=== PATIENT | male | born 1950 | race Hispanic/Latino ===

== ENCOUNTER 2019-06-23 09:17 | Observation (INO) | payer MEDICARE ==
[~2019-06-23] VITALS: Ht 167.6 cm; Wt 106.1 kg
[2019-06-23] MEDS ORDERED: ASPIRIN 81 MG CHEW TAB PO STA (09:35)
--- NOTE | 2019-06-23 10:09 | Diagnostic Imaging Report ---
EXAMINATION: CXR 2 VIEW - HOPD INDICATION: Chest pain COMPARISON: None FINDINGS: LINES/TUBES:None LUNGS:The lungs are well-inflated. No focal consolidation or pulmonary edema. PLEURA:No pleural effusion or pneumothorax. MEDIASTINUM:The cardiomediastinal silhouette appears normal in size and shape. BONES/SOFT TISSUES:No acute osseous injury. ABDOMEN:No free air under the diaphragm. IMPRESSION: No focal pneumonia or pulmonary edema. Signed by: Krista Ferrari MD on 06/23/2019 10:06 AM
[2019-06-23] MEDS ORDERED: ASPIRIN 81 MG CHEW TAB ONE (10:29)
[2019-06-23] MEDS ORDERED: MORPHINE SULFATE 2 MG/ML SYR 1ML IV PRN (10:45)
[2019-06-23] MEDS ORDERED: ASPIRIN 81 MG CHEW TAB PO ONE (10:45)
[2019-06-23] MEDS ORDERED: ONDANSETRON HCL INJ 2MG/ML 2ML 2 MG/ML VIAL IV PRN (10:45)
[2019-06-23] MEDS ORDERED: DEXTROSE 50% SYRINGE 50 ML IV PRN (10:45)
[2019-06-23] MEDS ORDERED: NITROGLYCERIN 0.4 MG SUBL SL PRN (10:45)
[2019-06-23] MEDS ORDERED: FAMOTIDINE 20 MG TAB PO SCH (10:45)
--- OUTSIDE RECORDS SUMMARY | 2019-06-23 11:05 | XMS REPORT | Clinical Summary ---
Author Author [facility] Address Unknown Phone Unavailable Care Team Providers Care Breakdown Person Name Role Phone Deion Adams PCP Unavailable Allergies No Known Allergies Medications End Date Status Medication Sig Dispensed Refills Start Date Active insulin glulisine Inject 12 0 (APIDRA) 100 unit/mL Units injection subcutaneousl y 3 (three) times daily before meals. Active insulin glargine (LANTUS) Inject 50 0 100 unit/mL injection Units subcutaneousl y nightly. Use as directed Active losartan-hydrochlorothiaz Take 1 tablet 0 jordan (HYZAAR) 100-12.5 mg by mouth per tablet daily. Active amLODIPine (NORVASC) 5 MG Take 10 mg by 0 tablet mouth daily. Active TRAVOPROST (TRAVATAN Z Apply to 0 OPHT) eye(s) daily. Active cycloSPORINE (RESTASIS) 1 drop 2 0 0.05 % ophthalmic (two) times emulsion daily. Active Problems Problem Noted Date H. pylori infection 03/15/2014 Fibrosis of liver 01/12/2014 Hypertension 04/14/2013 Hepatitis C 04/14/2013 Elevated LFTs 04/14/2013 Overview: ICD9 DX Supervisor Crack Off Depression 04/14/2013 Anxiety disorder 04/14/2013 Alcohol abuse 04/14/2013 Colon polyp 04/14/2013 Umbilical hernia 04/14/2013 Epistaxis 04/14/2013 Fatty liver 04/14/2013 Hyperlipidemia 04/14/2013 Microalbuminuria 04/14/2013 Obesity 04/14/2013 Immunity status testing 04/14/2013 Sprain of rotator cuff capsule 04/14/2013 Overview: ICD9 DX Supervisor Crack Off Sprain and strain 04/14/2013 Overview: Upper arm Insulin dependent diabetes mellitus 04/14/2013 Primary localized osteoarthrosis 04/14/2013 Overview: Shoulder region Left rotator cuff tear 04/14/2013 Bicipital tenosynovitis 04/14/2013 Family History Medical History Relation Name Comments Cancer Heart disease Heart disease Relation Name Status Comments Brother Alive Brother Alive Father Mother Sister Alive Sister Alive Social History Date Tobacco Use Types Packs/Day Years Used Former Smoker Cigarettes 0.5 25 Smokeless Tobacco: Never Used Comments: quit 2001 Alcohol Use Drinks/Week oz/Week Comments No none in 9 months Sex Assigned at Date Recorded Not on file Industry Job Start Date Occupation Not on file Not on file Not on file Travel End Travel History Travel Start No recent travel history available. Last Filed Vital Signs Not on file Plan of Treatment Health Maintenance Due Date Last Done Comments INFLUENZA VACCINE 08/15/2018 Results Not on fileafter 06/22/2018 Insurance Payer Benefit Subscriber ID Type Phone Address Plan / Group [facility] P[employer] C[employer] OPTIONS (Work)
--- OUTSIDE RECORDS SUMMARY | 2019-06-23 11:05 | XMS REPORT ---
[facility] Address Unknown Phone Unavailable Care Team Providers Care Matrix Inspector Name Role Phone ALEXANDER BECKMAN Unavailable Unavailable Problems This patient has no known problems. Allergies, Adverse Reactions, Alerts This patient has no known allergies or adverse reactions. Medications This patient has no known medications. Results Test Description Test Time Test Comments Text Results Atomic Results Result Comments CXR 2 VIEW - HOPD 2019-06-23 10:05:00 [place] [address] Patient Name: AIMEE PAEZ MR #: [id number] : 1950 Age/Sex: 68/M Req #: [id number] [facility] Physician: Ordered by: ALEXANDER BECKMAN MD Report #: [id number] Location: [facility] Room/Bed: Procedure: [id number] HOPD/CXR 2 VIEW - HOPD Exam Date: 06/23/19 Exam Time: 0950 REPORT STATUS: Signed EXAMINATION: CXR 2 VIEW - HOPD INDICATION: Chest pain COMPARISON: None FINDINGS: LINES/TUBES:None LUNGS:The lungs are well-inflated. No focal consolidation or pulmonary edema. PLEURA:No pleural effusion or pneumothorax. MEDIASTINUM:The cardiomediastinal silhouette appears normal in size and shape. BONES/SOFT TISSUES:No acute osseous injury. ABDOMEN:No free air under the diaphragm. IMPRESSION: No focal pneumonia or pulmonary edema. Signed by: Cony Ferrari MD on 06/23/2019 10:06 AM Dictated By: CONY FERRARI MD [id number] Transcribed By: ABELINO on 06/23/19 1006 COPY TO: ALEXANDER BECKMAN MD
[2019-06-23] MEDS ORDERED: LORAZEPAM INJ 2 MG/ML VIAL IV ONE (11:30)
[2019-06-23] MEDS ORDERED: INSULIN REGULAR, HUMAN 100 UNIT/1 ML 3ML VIAL SQ SCH (11:30)
[2019-06-23] MEDS ORDERED: FAMOTIDINE 20 MG TAB ONE (11:32)
--- NOTE | 2019-06-23 11:33 | NUR ---
Called [facility] to transport pt to Room 108
--- NOTE | 2019-06-23 11:38 | NUR ---
[facility] AWAIT[facility] FOR PT TO ARRIVE TO FLOOR
--- NOTE | 2019-06-23 11:39 | NUR ---
Report to JULIETH Deluca
[2019-06-23 12:08] VITALS: BP 160/71
--- NOTE | 2019-06-23 12:15 | NUR ---
RECEIVED PT TO FLOOR AA0X3 PT C/O PAIN TO CHEST (PRESSURE 3/10) NO RADIATION PT IS ON TELEMETRY RUNNING SR IV TO THE LEFT FA 20 G PATENT AND DRY WILL CONTINUE TO MONITOR PT CLOSELY SIDE RAILSX3, BED WHEELS LOCKED ,CALL LIGHT IS WITHIN EASY REACH , INSTRUCTED TO CALL FOR ASSISTANCE IF NEEDED
[2019-06-23 12:19] VITALS: BP 160/71
[2019-06-23 14:03] LABS: CREATINE KINASE 74 IU/L (30-200)
[2019-06-23] MEDS ORDERED: AMLODIPINE BESY10 MG PO (14:55)
[2019-06-23] MEDS ORDERED: NOVOLOG100 UNIT/1 (14:55)
[2019-06-23] MEDS ORDERED: LATANOPROST2.5 ML OP (14:55)
[2019-06-23] MEDS ORDERED: ASPIR 8181 MG PO (14:55)
[2019-06-23] MEDS ORDERED: LEVEMIR100 UNIT/1 SC (14:55)
[2019-06-23] MEDS ORDERED: HYDROCHLOROTHIA25 MG PO (14:55)
[2019-06-23] MEDS ORDERED: LOSARTAN POTAS100 MG PO (14:55)
--- NOTE | 2019-06-23 15:13 | NUR ---
CALLED CONSULT WITH SILVIA SPOKE WITH SILVIA SON NEW ORDERS RECEIVED
[2019-06-23 15:25] VITALS: BP 146/67
[2019-06-23] MEDS: INSULIN LISPRO 100 UNIT/1 ML 3ML VIAL SQ SCH ×2 (16:49→21:36)
[2019-06-23] MEDS: ALPRAZOLAM 0.25 MG TAB PO PRN ×2 (17:10→23:33)
--- NOTE | 2019-06-23 18:38 | NUR ---
PT C/O ANXIETY. PRN XANAX GIVEN
--- NOTE | 2019-06-23 19:00 | NUR ---
RECEIVED PATIENT IN BEDSIDE REPORT. PATIENT REPORTS THE XANAX HELPED HIS ANXIETY AND THAT HE HAS NO CHEST PAIN AT THIS MOMENT. NO OTHER PAIN REPORTED. NO S&S OF DISTRESS NOTED. BED LOCKED IN LOWEST POSITION, SIDE RAILS UPX2, CALL LIGHT IN REACH.
[2019-06-23 20:47] VITALS: BP 148/65
[2019-06-23 20:50] LABS: CREATINE KINASE MB 2.7 ng/mL (0-5.0)
[2019-06-23] MEDS ORDERED: LATANOPROST(OPTH) 2.5 ML BTL OP SCH (21:00)
[2019-06-23] MEDS ORDERED: INSULIN GLARGINE 100 UNITS/ML VIAL SQ SCH (21:00)
[2019-06-24] VITALS: BP 162/71
--- NOTE | 2019-06-24 00:20 | NUR ---
PATIENT STATES HE IS FEELING ANXIOUS AGAIN, XANAX GIVEN. NO OTHER NEEDS REPORTED. BED LOCKED IN LOWEST POSITION, SIDE RAILS UPX2, CALL LIGHT IN REACH.
[2019-06-24 04:00] VITALS: BP 126/61
[2019-06-24] MEDS: ALPRAZOLAM 0.25 MG TAB PO PRN (06:26)
[2019-06-24 06:55] LABS: CHOL/HDL RATIO 3.6 (3.9-4.7)
[2019-06-24 08:09] VITALS: BP 122/67
[2019-06-24 08:15] VITALS: BP 122/67
[2019-06-24] MEDS: INSULIN LISPRO 100 UNIT/1 ML 3ML VIAL SQ SCH ×2 (08:15→12:30)
[2019-06-24] MEDS ORDERED: LOSARTAN POTASSIUM 100 MG TAB PO SCH (09:00)
[2019-06-24] MEDS ORDERED: HYDROCHLOROTHIAZIDE 25 MG TAB PO SCH (09:00)
[2019-06-24] MEDS ORDERED: ASPIRIN 81 MG CHEW TAB PO SCH (09:00)
[2019-06-24] MEDS ORDERED: AMLODIPINE BESYLATE 10 MG TAB PO SCH (09:00)
[2019-06-24 12:00] VITALS: BP 153/65
[2019-06-24] MEDS ORDERED: XANAX0.25 MG PO (12:31)
--- NOTE | 2019-06-24 12:42 | Discharge Summary ---
PRIMARY CARE DOCTOR: Yessica Ross MD. FINAL DIAGNOSIS: Noncardiac chest pain, likely due to anxiety. SECONDARY DIAGNOSES: 1. Diabetes. 2. Hypertension. PROCEDURES/STUDIES PERFORMED: Carotid Doppler, preliminary was unremarkable. Echocardiogram, preliminary is unremarkable as well. HISTORY: Per [facility] HOSPITAL COURSE: The patient was admitted. Given the fact the patient had persistent chest pain for 24 hours and had 2 negative troponins, this is noncardiac, i.e., he did not have an acute myocardial infarction. Also, the patient stated that he had a stress test with a [facility] assistant women's soccer coach within a year. The patient also has some nonspecific dizziness with arms and neck movement. Carotid ultrasound was done, which was unremarkable. Echo was unremarkable as well. Empirically, the patient was started on low-dose Xanax and everything seems to be better now. Chest pain is better. Dizziness better. Therefore, this is likely due to anxiety. The patient was instructed to follow up with his primary care doctor in one week. He understands and is agreeable. The patient was seen and examined today. CONDITION ON DISCHARGE: Improved. DISCHARGE MEDICATIONS: Please see medication reconciliation form. Yiching MD ROBINA Ortiz/GABRIELLE /[id number] cc: [facility]
--- NOTE | 2019-06-24 13:01 | NUR ---
discharge instructions and prescriptions given pt verbalized understanding iv dc pressure dressing applied and taped pt is now off unit to home via wheel chair (md patel states md salas doesnt need to see pt prior to dc)
== END 2019-06-24 12:53 | disposition home or self-care (01) ==
LOC: FSED 09:17 → ERHOLD 10:46 → MED/SURG 12:17
PROVIDERS: ADMIT Internal Medicine; ATTEND Internal Medicine
DX: R07.89 Other chest pain (principal); E11.9 Type 2 diabetes mellitus without complications; I10 Essential (primary) hypertension; R42 Dizziness and giddiness; F41.9 Anxiety disorder, unspecified; E78.5 Hyperlipidemia, unspecified
CPT/HCPCS: 36415 ×2; 71046; 80048; 80061; 80076; 82550; 82553; 82948 ×2; 84443; 84484; 85025; 93005; 93306; 93880; 99284; G0378 ×2; J1815; J1817; J2060; J2270; J2405

== ENCOUNTER 2023-04-10 11:46 | Emergency (ER) | payer MEDICARE ==
[~2023-04-10] VITALS: Ht 167.6 cm; Wt 106.1 kg
[~2023-04-10 11:46] MED LIST: AMLODIPINE BESY10 MG PO; ASPIR 8181 MG PO; HYDROCHLOROTHIA25 MG PO; LATANOPROST2.5 ML OP; LEVEMIR100 UNIT/1 SC; LOSARTAN POTAS100 MG PO; NOVOLOG100 UNIT/1; XANAX0.25 MG PO
[2023-04-10 13:43] LABS: BASOPHILS % 0.3 % (0.0-1.0); EOSINOPHILS # (AUTO) 0.1 (0.0-0.4); EOSINOPHILS % 0.9 % (0.0-6.0); HEMATOCRIT 43.6 % (38.2-49.6); HEMOGLOBIN 15.4 g/dL (14.0-18.0); LYMPHOCYTES # (AUTO) 1.9 (1.0-3.2); LYMPHOCYTES % 14.9 % (18.0-39.1); MEAN CORPUSCULAR HGB CONC 35.3 g/dL (31-35); MONOCYTES # (AUTO) 0.8 (0.2-0.8); MONOCYTES % 5.8 % (4.4-11.3); NEUTROPHILS % 77.7 % (38.7-80.0); PLATELET COUNT 315 x10e3/uL (140-360); RED BLOOD COUNT 5.13 x10e6/uL (4.3-5.7); RED CELL DISTRIBUTION WIDTH 12.6 % (11.7-14.4)
[2023-04-10 14:02] LABS: ALBUMIN/GLOBULIN RATIO 1.1 (0.8-2.0); ANION GAP 14.6 mmol/L (8-16); CALCIUM 9.3 mg/dL (8.4-10.2); CREATININE, SERUM 0.74 mg/dL (0.72-1.25); MAGNESIUM 1.8 MG/DL (1.3-2.1); POTASSIUM 3.6 mmol/L (3.5-5.1)
[2023-04-10 16:02] VITALS: BP 162/64; PULSE 73; RESP 16; O2SAT 100
== END 2023-04-10 17:43 | disposition home or self-care (01) ==
LOC: ER 11:58
DX: I10 Essential (primary) hypertension (principal); E11.65 Type 2 diabetes mellitus with hyperglycemia; E78.5 Hyperlipidemia, unspecified
CPT/HCPCS: 36415; 71045; 80053; 83735; 84484; 85025; 93005; 99283